=== PATIENT | female | born 1950 | race Caucasian/White ===

== ENCOUNTER 2021-01-12 17:37 | Inpatient (IN) | payer MEDICARE, OTHER ==
[~2021-01-12] VITALS: Ht 175.3 cm; Wt 112.9 kg
--- NOTE | 2021-01-12 17:48 | ED Respiratory ---
General Chief Complaint: Respiratory Problems Stated Complaint: SOB Source: patient Exam Limitations: no limitations History of Present Illness Date Seen by Provider: Jan 12, 2021 Time Seen by Provider: 17:40 Initial Comments 70-year-old female with past medical history of hypertension, hyperlipidemia, and recent Covid coming in due to worsening shortness of breath. The patient was Covid positive on December 23. At that time her symptoms were body aches, chills, fever, cough, and mild shortness of breath. Most of that including her fatigue is significantly better. She has been out of quarantine for over 9 days. Or shortness of breath and cough have never improved. Now she is developing a sharp chest pain worse with inspiration that she has never had before. She went to the clinic and with ambulation her oxygen saturation was in the 80s so she was referred here. Denies any previous history of blood clots in her legs or her lungs. Denies any active malignancy. Denies any recent surgeries. Does endorse unilateral leg swelling with pain on the right which she relates first noticed today. Denies any personal history of cardiac disease. She does not smoke. She does not take any hormone therapy. She does have a cough but denies hemoptysis. Allergies and Home Medications Allergies Coded Allergies: No Known Drug Allergies (Unverified , 01/12/21) Patient Home Medication List Home Medication List Reviewed: Yes Review of Systems Review of Systems Constitutional: No fever EENTM: No blurred vision Respiratory: cough; No hemoptysis; short of breath Cardiovascular: chest pain Gastrointestinal: No abdominal pain, No diarrhea, No nausea, No vomiting Genitourinary: No dysuria : No Musculoskeletal: No back pain Skin: No rash Psychiatric/Neurological: Denies Anxiety, Denies Depressed Hematologic/Lymphatic: No Symptoms Reported Immunological/Allergic: no symptoms reported All Other Systems Reviewed Negative Unless Noted: Yes Past Fhlwstz-Mlwvol-Dxqkkt Hx Patient Social History Tobacco Use?: No Past Medical History Surgeries: Yes Gallbladder Respiratory: No Cardiac: Yes High Cholesterol, Hypertension Neurological: No : No Family Medical History No Pertinent Family Hx (No FH of blood clots) Physical Exam Vital Signs - First Documented 01/12/21 17:37 Temp 37.4 Pulse 79 B/P (MAP) 158/85 (109) Pulse Ox 98 O2 Delivery Room Air Capillary Refill : Height: '" Weight: lbs. oz. kg; BMI Method: General Appearance: WD/WN, no apparent distress HEENT: PERRL/EOMI, normal ENT inspection, pharynx normal Neck: non-tender, full range of motion, supple, normal inspection Respiratory: chest non-tender, lungs clear, normal breath sounds, no respiratory distress, no accessory muscle use Cardiovascular: regular rate, rhythm, no murmur, other (Trace lower extremity edema) Gastrointestinal: normal bowel sounds, non tender, soft; No distended, No guarding, No rebound Extremities: normal range of motion, other (Mild tenderness to the right lower extremity, lower extremities appear equal in size to me however) Neurologic/Psychiatric: no motor/sensory deficits, alert, normal mood/affect Skin: normal color, warm/dry Lymphatic: no adenopathy Progress/Results/Core Measures Suspected Sepsis SIRS Temperature: Pulse: Respiratory Rate: Laboratory Tests 01/12/21 17:40: White Blood Count 8.2 Blood Pressure / Mean: Laboratory Tests 01/12/21 17:40: Creatinine 0.99, INR Comment 1.0, Platelet Count 237, Total Bilirubin 0.8 Results/Orders Lab Results Laboratory Tests Test 01/12/21 17:40 Range/Units White Blood Count 8.2 4.3-11.0 10^3/uL Red Blood Count 4.30 3.80-5.11 10^6/uL Hemoglobin 12.3 11.5-16.0 g/dL Hematocrit 38 35-52 % Mean Corpuscular Volume 88 80-99 fL Mean Corpuscular Hemoglobin 29 25-34 pg Mean Corpuscular Hemoglobin Concent 32 32-36 g/dL Red Cell Distribution Width 14.6 H 10.0-14.5 % Platelet Count 237 130-400 10^3/uL Mean Platelet Volume 9.6 9.0-12.2 fL Immature Granulocyte % (Auto) 0 % Neutrophils (%) (Auto) 75 42-75 % Lymphocytes (%) (Auto) 12 12-44 % Monocytes (%) (Auto) 11 0-12 % Eosinophils (%) (Auto) 2 0-10 % Basophils (%) (Auto) 0 0-10 % Neutrophils # (Auto) 6.2 1.8-7.8 X 10^3 Lymphocytes # (Auto) 1.0 1.0-4.0 X 10^3 Monocytes # (Auto) 0.9 0.0-1.0 X 10^3 Eosinophils # (Auto) 0.1 0.0-0.3 10^3/uL Basophils # (Auto) 0.0 0.0-0.1 10^3/uL Immature Granulocyte # (Auto) 0.0 0.0-0.1 10^3/uL Prothrombin Time 13.0 12.2-14.7 SEC INR Comment 1.0 0.8-1.4 Activated Partial Thromboplast Time 30 24-35 SEC Sodium Level 138 135-145 MMOL/L Potassium Level 4.2 3.6-5.0 MMOL/L Chloride Level 102 98-107 MMOL/L Carbon Dioxide Level 27 21-32 MMOL/L Anion Gap 9 5-14 MMOL/L Blood Urea Nitrogen 16 7-18 MG/DL Creatinine 0.99 0.60-1.30 MG/DL Estimat Glomerular Filtration Rate 55 BUN/Creatinine Ratio 16 Glucose Level 120 H 70-105 MG/DL Calcium Level 9.4 8.5-10.1 MG/DL Corrected Calcium 9.3 8.5-10.1 MG/DL Total Bilirubin 0.8 0.1-1.0 MG/DL Aspartate Amino Transf (AST/SGOT) 16 5-34 U/L Alanine Aminotransferase (ALT/SGPT) 18 0-55 U/L Alkaline Phosphatase 84 40-136 U/L Troponin I < 0.30 <0.30 NG/ML Pro-B-Type Natriuretic Peptide 293.1 H <75.0 PG/ML Total Protein 7.2 6.4-8.2 GM/DL Albumin 4.1 3.2-4.5 GM/DL My Orders Orders - VANESSA SCHWARZ MD Ct Angio Chest W (01/12/21 17:48) Cbc With Automated Diff (01/12/21 17:48) Ekg Tracing (01/12/21 17:48) Comprehensive Metabolic Panel (01/12/21 17:48) Protime With Inr (01/12/21 17:48) Partial Thromboplastin Time (01/12/21 17:48) O2 (01/12/21 17:48) Monitor-Rhythm Ecg Trace Only (01/12/21 17:48) Ed Iv/Invasive Line Start (01/12/21 17:48) Troponin I Fs (01/12/21 17:48) Probnp Fs (01/12/21 17:48) Iohexol Injection (Omnipaque 350 Mg/Ml 1 (01/12/21 18:30) Received Contrast (Hold Metformin- Contr (01/12/21 18:30) Sodium Chloride Flush (Catheter Flush Sy (01/12/21 18:30) Ns (Ivpb) (Sodium Chloride 0.9% Ivpb Bag (01/12/21 18:30) Heparin Drip 02103 Unit/500ml (Heparin (01/12/21 19:15) Heparin (Bolus Per Protocol) (Heparin (B (01/12/21 19:15) Medications Given in ED Current Medications Medications Dose Ordered Sig/Margot Route Start Time Stop Time Status Last Admin Dose Admin Heparin Sodium (Porcine) HEPARIN FULL PROTOC... ONCE ONCE IV 01/12/21 19:15 01/12/21 19:16 DC 01/12/21 19:42 10,000 UNIT Heparin Sodium/ Dextrose 500 ml @ 0 mls/hr Q0M ONCE IV 01/12/21 19:15 01/12/21 19:16 DC 01/12/21 19:48 18 MLS/HR Iohexol 115 ml ONCE ONCE IV 01/12/21 18:30 01/12/21 18:32 DC 01/12/21 18:44 115 ML Sodium Chloride 10 ml NEEDED PRN IV 01/12/21 18:30 01/12/21 18:44 10 ML Sodium Chloride 100 ml ONCE ONCE IV 01/12/21 18:30 01/12/21 18:32 DC 01/12/21 18:44 100 ML Vital Signs/I&O 01/12/21 17:37 Temp 37.4 Pulse 79 B/P (MAP) 158/85 (109) Pulse Ox 98 O2 Delivery Room Air Capillary Refill : Progress Note : Progress Note 70-year-old female with above history coming in due to chest pain and shortness of breath. ABCs were intact and vitals were stable on presentation. With ambulation her oxygen saturation was 90%, and after resting it went back up to 98%. Her lungs are clear. EKG appears without any ischemic changes to me. Her Warren score is 11 which puts her at high risk for a pulmonary embolism. Due to being high risk, we will go straight to CT angiogram of her chest to assess for a pulmonary embolism. proBNP just under 300, troponin negative, electrolytes within normal limits. CT on my interpretation concerning for pulmonary emboli. The patient was started on a heparin bolus with drip. Her PESI score is 111 making her high risk (scored higher for tachypnea and transient hypoxia). No signs of right heart strain on CT or EKG. Because of her risk factors however, I believe it is more appropriate for her to be admitted. I discussed the case with Dr. Huber at 19:38 who is agreeable to admit the patient under observation status. At the time of transfer, she was not hypoxic, not tachycardic, and blood pressure was appropriate. ECG Initial ECG Impression Date: Jan 12, 2021 Initial ECG Impression Time: 17:48 Initial ECG Rate: 74 Initial ECG Rhythm: Normal Sinus Comment Normal sinus rhythm, narrow QRS, normal axis, no significant ST changes or T wave abnormalities Departure Impression Primary Impression: Pulmonary emboli Qualified Codes: I26.99 - Other pulmonary embolism without acute cor pulmonale Additional Impression: Dyspnea Qualified Codes: R06.00 - Dyspnea, unspecified Disposition: 30 STILL A PATIENT Condition: Stable Admissions Decision to Admit Reason: Admit from ER (General) Decision to Admit/Date: Jan 12, 2021 Time/Decision to Admit Time: 19:46 Departure-Patient Inst. Referrals: GURJIT MCDONALD MD (PCP/Family) Primary Care Physician VANESSA SCHWARZ MD Jan 12, 2021 17:48
[2021-01-12 18:02] LABS: BASOPHILS % (AUTO) 0 % (0-10); EOSINOPHILS # (AUTO) 0.1 10^3/uL (0.0-0.3); EOSINOPHILS % (AUTO) 2 % (0-10); HEMATOCRIT 38 % (35-52); HEMOGLOBIN 12.3 g/dL (11.5-16.0); LYMPHOCYTES % (AUTO) 12 % (12-44); MEAN CORPUSCULAR HEMOGLOBIN 29 pg (25-34); MEAN CORPUSCULAR HGB CONC 32 g/dL (32-36); MEAN CORPUSCULAR VOLUME 88 fL (80-99); MEAN PLATELET VOLUME 9.6 fL (9.0-12.2); MONOCYTES # (AUTO) 0.9 X 10^3 (0.0-1.0); MONOCYTES % (AUTO) 11 % (0-12); NEUTROPHILS # (AUTO) 6.2 X 10^3 (1.8-7.8); NEUTROPHILS % (AUTO) 75 % (42-75); PLATELET COUNT 237 10^3/uL (130-400); WHITE BLOOD COUNT 8.2 10^3/uL (4.3-11.0)
[2021-01-12 18:17] LABS: BILIRUBIN,TOTAL 0.8 MG/DL (0.1-1.0); CALCIUM 9.4 MG/DL (8.5-10.1); CREATININE SERUM 0.99 MG/DL (0.60-1.30); POTASSIUM 4.2 MMOL/L (3.6-5.0)
[2021-01-12 18:18] LABS: ALBUMIN 4.1 GM/DL (3.2-4.5); TOTAL PROTEIN 7.2 GM/DL (6.4-8.2)
[2021-01-12] MEDS ORDERED: IOHEXOL 350 MG/ML 150 ML (OMNIPAQUE 350) VIAL IV ONE (18:30)
[2021-01-12] MEDS ORDERED: NS 100 ML (IVPB) BAG IV ONE (18:30)
[2021-01-12] MEDS ORDERED: HOLD METFORMIN - RECEIVED CONTRAST 20 ML VIAL IV SCH (18:30)
[2021-01-12] MEDS ORDERED: CATHETER FLUSH 10 ML SYR IV PRN (18:30)
--- NOTE | 2021-01-12 19:06 | Diagnostic Imaging Report ---
PROCEDURE: CT angiography of the chest with contrast. TECHNIQUE: Multiple contiguous axial images were obtained through the chest after uneventful bolus administration of intravenous contrast. 3D reconstructed CTA MIP acquisitions were also performed. Auto Exposure Controls were utilized during the CT exam to meet ALARA standards for radiation dose reduction. INDICATION: Shortness of breath, pulmonary embolism. COMPARISON: None available. FINDINGS: Calcified right hilar lymph nodes are present. No pathologically enlarged lymph nodes within the chest. Scattered vascular calcifications without aneurysmal dilatation of the thoracic aorta. The heart is within normal limits in size. No significant pericardial effusion. Trace right pleural effusion. No significant left pleural effusion. No pneumothorax. Mild patchy reticular and groundglass opacities are present within the lungs, bilaterally, greatest within the right lung. More dense opacities are seen within the right lobe. The trachea is patent. Multiple filling defects are identified within segmental and subsegmental branches of the left upper lobe, left lower lobe, right lower lobe and right middle lobe. Additional filling defects noted within the right upper lobe pulmonary arteries. Interventricular septum is unremarkable. The visualized upper abdomen is unremarkable. No acute osseous abnormality. Scattered osseous degenerative changes. IMPRESSION: Extensive bilateral segmental and subsegmental pulmonary emboli without evidence of heart strain at this time. Significant bilateral pulmonary opacities. These are nonspecific. Findings could relate to an underlying infectious etiology. Developing pulmonary infarction is not excluded. Neoplasm is also not excluded. Recommend a follow-up CT of the chest in 3 months to reevaluate. Additional findings as described above, to include tiny right pleural effusion. Findings discussed with Dr. Tyler Sanchez at 1900 on 01/12/2021. Dictated by: Dictated on workstation # [id number]
[2021-01-12] MEDS ORDERED: HEParin 1000 UNIT/ML (10ML VIAL) FOR BOLUS IV ONE (19:15)
[2021-01-12] MEDS ORDERED: HEParin DRIP 25000 UNIT/500ML 500 ML IV ONE (19:15)
[2021-01-12 21:30] VITALS: BP 210/100
--- NOTE | 2021-01-12 22:23 | History & Physical ---
HPI History of Present Illness: Had onset of symptoms December 23 and positive COVID test on December 26. She isolated at home until Jan 02 and did okay, chest pain started on 01/05 and was initially 8/10, but has worsened to 9/10. She has also been short of breath and lightheaded periodically during the last week. She saw her primary doctor today due to right leg pain in her outer right calf and he said it may be a clot and sent her to the ER. In the ER at [place] she was found to have multiple PEs, but actually stable at rest on room air with desaturation only with activity and with normal heart rate. On arrival to [place], her heart rate was in the 160s with marked hypertension and EKG showed atrial fibrillation. She does feel palpitations but states they feel a little less now. She has no known cardiac history, states she saw a [employer] once after she had a coronary artery calcium score that was concerning and they stated she was generally okay and recommended healthy diet and exercise and weight loss. Source: patient Date seen by provider: Jan 12, 2021 Time Seen by Provider: 22:30 Attending Physician Shira Huber MD PCP Ángel Munguia MD Consult Date of Admission Jan 12, 2021 at 19:42 Home Medications Home Medications Reviewed patient Home Medication Reconciliation performed by pharmacy medication reconciliations respiratory therapy technician and/or nursing. Patients Allergies have been reviewed. Allergies Coded Allergies: No Known Drug Allergies (Unverified , 01/12/21) NKL-Edilfr-Ftqtxl Hx Patient Social History Smoking Status: Never a Smoker Alcohol Use?: No Have you traveled recently?: No Past Medical History PMHx: HTN HLD Nephrolithiasis SurgHx Hysterectomy cholecystectomy Back surgery Family Medical History Significant Family History: Cancer (maternal grandmother, mother, aunt and son colon cancer), Lung Disease Review of Systems ([facility]) Constitutional: No fever EENTM: No nose congestion, No throat pain Respiratory: dyspnea on exertion Cardiovascular: chest pain Gastrointestinal: No constipation, No diarrhea, No nausea, No vomiting Musculoskeletal: other (right leg pain) Reviewed Test Results Reviewed Test Results Lab Laboratory Tests Test 01/12/21 17:40 Range/Units White Blood Count 8.2 4.3-11.0 10^3/uL Red Blood Count 4.30 3.80-5.11 10^6/uL Hemoglobin 12.3 11.5-16.0 g/dL Hematocrit 38 35-52 % Mean Corpuscular Volume 88 80-99 fL Mean Corpuscular Hemoglobin 29 25-34 pg Mean Corpuscular Hemoglobin Concent 32 32-36 g/dL Red Cell Distribution Width 14.6 H 10.0-14.5 % Platelet Count 237 130-400 10^3/uL Mean Platelet Volume 9.6 9.0-12.2 fL Immature Granulocyte % (Auto) 0 % Neutrophils (%) (Auto) 75 42-75 % Lymphocytes (%) (Auto) 12 12-44 % Monocytes (%) (Auto) 11 0-12 % Eosinophils (%) (Auto) 2 0-10 % Basophils (%) (Auto) 0 0-10 % Neutrophils # (Auto) 6.2 1.8-7.8 X 10^3 Lymphocytes # (Auto) 1.0 1.0-4.0 X 10^3 Monocytes # (Auto) 0.9 0.0-1.0 X 10^3 Eosinophils # (Auto) 0.1 0.0-0.3 10^3/uL Basophils # (Auto) 0.0 0.0-0.1 10^3/uL Immature Granulocyte # (Auto) 0.0 0.0-0.1 10^3/uL Prothrombin Time 13.0 12.2-14.7 SEC INR Comment 1.0 0.8-1.4 Activated Partial Thromboplast Time 30 24-35 SEC Sodium Level 138 135-145 MMOL/L Potassium Level 4.2 3.6-5.0 MMOL/L Chloride Level 102 98-107 MMOL/L Carbon Dioxide Level 27 21-32 MMOL/L Anion Gap 9 5-14 MMOL/L Blood Urea Nitrogen 16 7-18 MG/DL Creatinine 0.99 0.60-1.30 MG/DL Estimat Glomerular Filtration Rate 55 BUN/Creatinine Ratio 16 Glucose Level 120 H 70-105 MG/DL Calcium Level 9.4 8.5-10.1 MG/DL Corrected Calcium 9.3 8.5-10.1 MG/DL Total Bilirubin 0.8 0.1-1.0 MG/DL Aspartate Amino Transf (AST/SGOT) 16 5-34 U/L Alanine Aminotransferase (ALT/SGPT) 18 0-55 U/L Alkaline Phosphatase 84 40-136 U/L Troponin I < 0.30 <0.30 NG/ML Pro-B-Type Natriuretic Peptide 293.1 H <75.0 PG/ML Total Protein 7.2 6.4-8.2 GM/DL Albumin 4.1 3.2-4.5 GM/DL Radiology CTA chest 01/12: IMPRESSION: Extensive bilateral segmental and subsegmental pulmonary emboli without evidence of heart strain at this time. Significant bilateral pulmonary opacities. These are nonspecific. Findings could relate to an underlying infectious etiology. Developing pulmonary infarction is not excluded. Neoplasm is also not excluded. Recommend a follow-up CT of the chest in 3 months to reevaluate. Physical Exam-([facility]) Physical Exam Vital Signs VS - Last 72 Hours, by Label 01/12/21 17:37 Temp 37.4 Pulse 79 B/P (MAP) 158/85 (109) Pulse Ox 98 O2 Delivery Room Air Capillary Refill : General Appearance: WD/WN, no apparent distress Respiratory: lungs clear, normal breath sounds, no respiratory distress Cardiovascular: tachycardia, irregularly irregular Peripheral Pulses: 2+ Dorsalis Pedis (R), 2+ Left Dors-Pedis (L) Gastrointestinal: normal bowel sounds, non tender, soft Neurologic/Psychiatric: alert, normal mood/affect Skin: normal color, warm/dry Assessment/Plan Assessment/Plan Admission Status: Inpatient Order (span 2 midnights) Reason for Inpatient Admission: A fib with RVR, requiring ICU admission (1) Pulmonary emboli Status: Acute Assessment & Plan: Suspect secondary to recent COVID infection. Enoxaparin treatment dose, supplemental oxygen as needed. Qualifiers: Qualified Codes: I26.99 - Other pulmonary embolism without acute cor pulmonale (2) Atrial fibrillation Status: Acute Assessment & Plan: Suspect due to multiple PE. Initial troponin in ER negative, repeat pending. BNP minimally elevated. Check TSH. Transfer to ICU and start cardizem drip will consult eICU for overnight, echo in the am and Cardiology consult in am. (3) Hypertension Status: Chronic Assessment & Plan: Resume home lisinopril, starting cardizem drip for a fib and HTN. Qualifiers: Qualified Codes: I10 - Essential (primary) hypertension (4) Hyperlipidemia Status: Chronic Assessment & Plan: Resume home statin (5) DVT prophylaxis Status: Acute Assessment & Plan: On therapeutic enoxaparin SHIRA HUBER MD Jan 12, 2021 22:23
[2021-01-12] MEDS ORDERED: LISI20TA26 PO (22:24)
[2021-01-12] MEDS ORDERED: ATOR10TA66 PO (22:24)
[2021-01-12] MEDS ORDERED: ALLO100T PO (22:24)
[2021-01-12] MEDS ORDERED: ENOXAPARIN 100 MG/1 ML (LOVENOX) SYR SC ONE (23:00)
[2021-01-12] MEDS: dilTIAZem DRIP PRE-MIX 125 ML IV SCH (23:09)
--- OUTSIDE RECORDS SUMMARY | 2021-01-12 23:29 | XMS REPORT | Clinical Summary ---
Author Author [facility] Organization 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 8 Active lisinopril Take 20 mg by 0 (PRINIVIL,ZESTRIL) 20 MG mouth daily. 8 tablet Active citalopram (CELEXA) 40 MG Take 40 mg by 0 tablet mouth daily. 8 Active allopurinol (ZYLOPRIM) Take 100 mg 0 100 MG tablet by mouth daily. Active aspirin 81 MG EC Take 1 tablet 30 tablet 0 01 tabletIndications: (81 mg total) 8 Coronary artery disease by mouth involving sycuan coronary daily. 3 artery of sycuan heart times a week without angina pectoris, Dyslipidemia, Essential hypertension, Class 2 obesity without serious comorbidity with body mass index (BMI) of 36.0 to 36.9 in adult, unspecified obesity type Active Problems Problem Noted Date Chronic back pain Leg pain Family History Medical History Relation Name Comments Lung disease Father Stroke Mother Relation Name Status Comments Father Mother Alive Social History Date Tobacco Use Types Packs/Day Years Used Never Smoker Smokeless Tobacco: Never Used Comments Alcohol Use Standard Drinks/Week very seldom Yes 0 (1 standard drink = 0.6 o z pure alcohol) Sex Assigned at Date Recorded Not on file Last Filed Vital Signs Reading Time Taken Comments Vital Sign 167/85 05/14/2018 10:50 AM SPECIAL EDUCATION PROFESSOR Blood Pressure 60 05/14/2018 10:50 AM SPECIAL EDUCATION PROFESSOR Pulse - - Temperature - - Respiratory Rate - - Oxygen Saturation - - Inhaled Oxygen Concentration 112.5 kg (248 lb) 05/14/2018 10:50 AM SPECIAL EDUCATION PROFESSOR Weight 175.3 cm (5' 9") 05/14/2018 10:50 AM SPECIAL EDUCATION PROFESSOR Height 36.62 05/14/2018 10:50 AM SPECIAL EDUCATION PROFESSOR Body Mass Index Plan of Treatment Health Maintenance Due Date Last Done Comments Advance Directive has 1950 been filed Hepatitis C Screen 1950 Medicare Annual Wellness 1950 Td/Tdap# 1950 COVID-19 Vaccine (1) 1961 Colorectal Screening via 09/02/1999 Colonoscopy Mammogram Screening 09/02/1999 Zoster Vaccine# (1 of 2) 09/02/1999 Advance Directive 2014 Conversation Depression Screening 2014 PHQ-9 # Fall Risk Assessment # 2014 Osteoporosis Screening 2014 Patient Needs Advance 2014 Directive Pneumococcal Vaccine: 65+ 2014 Years (1 of 1 - PPSV23) Influenza Vaccine (#1) 2021 Results Not on filefrom Last 3 Months Insurance Type Payer Benefit Subscriber ID Effective Phone Address Plan / Dates Group Medicare MEDICARE MEDICARE [id number] 2014-P [place] COMMERCIAL-NONCONTRACTED COLONIAL [id number] [employer] resent MEDICARE SUPPLEMENT Advance Directives For more information, please contact: [phone] 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
--- OUTSIDE RECORDS SUMMARY | 2021-01-12 23:29 | XMS REPORT | Clinical Summary ---
Author Author [facility] Organization [facility] Address Unknown Phone Unavailable Care Team Providers Care Professor Of Graphic Design Name Role Phone Ángel Munguia MD PCP Source Comments Some departments are not documenting in the electronic medical record. If you d o not see the information that you expected, contact Release of Information in [facility] Health Information Management department at [phone] for further assistan ce in locating additional records.[facility] Allergies No Known Active Allergies Medications End Date Status Medication Sig Dispensed Refills Start Date Active allopurinol (ZYLOPRIM) Take 100 mg 0 05/25/2 01 100 mg tablet by mouth 8 daily. Active atorvastatin (LIPITOR) 10 Take 10 mg by 3 05/27 9/201 mg tablet mouth daily. 9 Active citalopram (CELEXA) 40 mg Take 40 mg by 0 / 4/201 tablet mouth daily. 9 Active cyclobenzaprine Take 10 mg by 0 (FLEXERIL) 10 mg tablet mouth as 9 Needed. Active lisinopril (PRINIVIL; Take 20 mg by 0 06/19/19 1 ZESTRIL) 20 mg tablet mouth daily. 9 Active Problems Not on file Surgical History Surgery Date Site/Laterality Comments HX HYSTERECTOMY BACK SURGERY CHOLECYSTECTOMY Medical History Medical History Date Comments Essential hypertension Kidney stones Hyperlipidemia Family History Medical History Relation Name Comments Emphysema Father Cancer Mother colon Hypertension Mother Stroke Mother Relation Name Status Comments Father Mother Alive Social History Date Tobacco Use Types Packs/Day Years Used Never Smoker Smokeless Tobacco: Never Used Comments Alcohol Use Standard Drinks/Week No 0 (1 standard drink = 0.6 o z pure alcohol) Alcohol Habits Answer Date Recorded How often do you have a drink containing alcohol? Never 07/24/2018 How many drinks containing alcohol do you have on No t asked a typical day when you are drinking? How often do you have six or more drinks on one Not asked occasion? Sex Assigned at Date Recorded Not on file Last Filed Vital Signs Reading Time Taken Comments Vital Sign 157/80 07/24/2018 11:05 AM VEGETABLE THINNER Blood Pressure 62 07/24/2018 11:05 AM VEGETABLE THINNER Pulse - - Temperature - - Respiratory Rate 97% 07/24/2018 11:05 AM VEGETABLE THINNER Oxygen Saturation - - Inhaled Oxygen Concentration 110.2 kg (243 lb) 07/24/2018 11:05 AM VEGETABLE THINNER Weight 171.7 cm (5' 7.6") 07/24/2018 11:05 AM VEGETABLE THINNER Height 37.39 07/24/2018 11:05 AM VEGETABLE THINNER Body Mass Index Plan of Treatment Health Maintenance Due Date Last Done Comments MEDICARE ANNUAL WELLNESS 1950 VISIT DTAP/TDAP VACCINES (1 - 09/02/1967 Tdap) HEPATITIS C SCREENING 09/02/1967 PHYSICAL (COMPREHENSIVE) 09/02/1967 EXAM BREAST CANCER SCREENING 1989 COLORECTAL CANCER 09/02/1999 SCREENING SHINGLES RECOMBINANT 09/02/1999 VACCINE (1 of 2) OSTEOPOROSIS 2014 SCREENING/MONITORING PNEUMONIA (PPSV23) 2014 VACCINE (1 of 1 - PPSV23) INFLUENZA VACCINE 02/24/2021 Results Not on filefrom Last 3 Months Insurance Type Payer Benefit Subscriber ID Effective Phone Address Plan / Dates Group Medicare MEDICARE MEDICARE [id number] 2014-P PART A AND resent B PPO [employer] B[employer]ERS [id number] 19-P LIFE & resent CASUALTY [phone] Advance Directives 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
[2021-01-12 23:30] VITALS: BP 158/85
[2021-01-13] MEDS ORDERED: RT-ALBUTEROL/IPRATROPIUM 3 ML (DUONEB) VIAL INH PRN
--- NOTE | 2021-01-13 00:06 | Tele-ICU Consult ---
History of Present Illness History of Present Illness Date Seen by Provider: Jan 12, 2021 Time Seen by Provider: 11:45 Date of Admission This virtual visit was conducted using real time audio/video. Thank you for asking us to see this patient for respiratory insufficiency and distress due to B PEs and initial afib which has converted to NSR. Recently diagnosed w Covid 12/23/2020. HPC: Recent events: Chest pain, desaturation w exertion. PMH: HTN HL Gout Covid. SH: smoking history:N FH: Non-contributory. ROS: limited by patient's clinical condition, currently asymptomatic. PE: VSS HR 82 SR BP 172/86 O2 sat 91% on RA. HEENT: No obvious masses, adenopathy or JVD. Chest: clear to auscultation. CV: RRR S1 S2 No murmur or added sounds. Abd: Non-tender. Bowel sounds Y. : Unremarkable. Chaudhry N. WEB CONTENT PRODUCER/psychiatric: Alert and oriented, grossly intact. No obvious focal findings. Extremities: No edema. Capillary refill < 3 seconds. Skin: unremarkable. Results: Elevated BG 120, proBNP. CTC w B PEs. A/P: Respiratory insufficiency/distress, B PEs, recently converted afib: Cont Duonebs, Lovenox, Cardizem infusion. Available chart/ vitals / labs / Images reviewed. Video assessment done using teleICU camera, rest of exam as per RN. Monitor for increasing oxygenation needs and/or need for NIV/intubation.. Critical Care: critically ill patient. Discussed with BELLE Verduzco . Asked RN to reach out to eICU if any questions or concerns later. Time spent with patient/coordination of care with other health professionals (mins): 20 ? Allergies and Home Medications Allergies Coded Allergies: No Known Drug Allergies (Unverified , 01/12/21) Home Medications Allopurinol 100 Mg Tablet, 1 TAB PO DAILY, (Reported) Atorvastatin Calcium 10 Mg Tablet, 10 MG PO DAILY, (Reported) Lisinopril 20 Mg Tablet, 20 MG PO DAILY, (Reported) Past Medical/Social/Family Hx Patient Social History Tobacco Use?: No Smoking Status: Never a Smoker Use of E-Cig and/or Vaping dev: No Substance use?: No Alcohol Use?: No Pt stated abuse/neglect: No Current Status Advance Directives: No Communicates: Verbally Primary Language: Filipino Preferred Spoken Language: Filipino Is interpretation needed?: No Past Medical History PMHx: HTN HLD Nephrolithiasis SurgHx Hysterectomy cholecystectomy Back surgery Review of Systems Constitutional: no symptoms reported Sepsis Event Evaluation Sepsis Stage: Ruled Out Height, Weight, BMI Height: '" Weight: lbs. oz. kg; 35.79 BMI Method: Exam Exam Patient acknowledged, consented, and participated in this virtual visit which wa s conducted using real time audio/video Vital Signs Date Time Temp Pulse Resp B/P (MAP) Pulse Ox O2 Delivery O2 Flow Rate FiO2 01/12/21 23:30 37.4 79 98 21 01/12/21 22:31 36.6 89 20 176/89 96 Room Air 01/12/21 21:30 155 22 210/100 (136) 90 Room Air 01/12/21 17:37 37.4 79 158/85 (109) 98 Room Air Height & Weight Height: '" Weight: lbs. oz. kg; 35.79 BMI Method: General Appearance: No Apparent Distress Peripheral Pulses: 2+ Dorsalis Pedis (R), 2+ Left Dors-Pedis (L) Gastrointestinal: normal bowel sounds, non tender, soft Results Lab Laboratory Tests 01/12/21 17:40 Assessment/Plan Assessment/Plan See free text. Critical Care: Critically Ill Patient Time spent on discussion(mins): 0 YI COX MD Jan 13, 2021 00:06
[2021-01-13 03:26] LABS: BASOPHILS % (AUTO) 0 % (0-10); EOSINOPHILS # (AUTO) 0.1 10^3/uL (0.0-0.3); EOSINOPHILS % (AUTO) 2 % (0-10); HEMATOCRIT 36 % (35-52); HEMOGLOBIN 11.7 g/dL (11.5-16.0); LYMPHOCYTES # (AUTO) 1.1 10^3/uL (1.0-4.0); LYMPHOCYTES % (AUTO) 14 % (12-44); MEAN CORPUSCULAR HEMOGLOBIN 29 pg (25-34); MEAN CORPUSCULAR HGB CONC 32 g/dL (32-36); MEAN CORPUSCULAR VOLUME 90 fL (80-99); MEAN PLATELET VOLUME 10.1 fL (9.0-12.2); MONOCYTES % (AUTO) 13 % (0-12); NEUTROPHILS # (AUTO) 5.4 10^3/uL (1.8-7.8); NEUTROPHILS % (AUTO) 71 % (42-75); PLATELET COUNT 206 10^3/uL (130-400); WHITE BLOOD COUNT 7.7 10^3/uL (4.3-11.0)
[2021-01-13 03:53] LABS: CALCIUM 9.4 MG/DL (8.5-10.1)
[2021-01-13 03:57] LABS: PHOSPHORUS 3.5 MG/DL (2.3-4.7)
[2021-01-13 03:58] LABS: CREATININE SERUM 0.95 MG/DL (0.60-1.30)
[2021-01-13 04:00] LABS: MAGNESIUM 1.9 MG/DL (1.6-2.4)
[2021-01-13] MEDS: POTASSIUM CL 10MEQ/50ML IVPB 50 ML IV SCH (04:01)
[2021-01-13] MEDS: MAGNESIUM 1 GM/100 ML IVPB 100 ML IV SCH (04:01)
[2021-01-13] MEDS: KCL 20 MEQ TAB (K-DUR) PO SCH (04:01)
[2021-01-13] MEDS ORDERED: HYDROmorphone 2 MG/ML VIAL (DILAUDID) IVP PRN (06:00)
[2021-01-13] MEDS ORDERED: lisINopril 20 MG (PRINIVIL) TABLET PO SCH (09:00)
[2021-01-13] MEDS ORDERED: ALLOPURINOL 100 MG (ZYLOPRIM) TAB PO SCH (09:00)
[2021-01-13] MEDS ORDERED: AtorvaSTATin TABLET 10 MG TABLET PO SCH (09:00)
--- NOTE | 2021-01-13 09:11 | Consultation-Cardiology ---
HPI-Cardiology Cardiology Consultation: Date of Consultation 01/13/21 Time Seen by a Provider: 08:30 Date of Admission Attending Physician Yisel Huber MD Admitting Physician Ángel Munguia MD Consulting Physician DEREK CHINCHILLA MD, MA, FACP, FACC, [facility] [place] [facility] Physician requesting consult: Dr. Huber HPI: Chief Complaint: Reason for consultation: A Fib with RVR HPI 70 yo woman who contracted COVID-19 in late November 2018. Finished quarantine on Jan 02. Has been having increasing cough and shortness of breath. No cp. Came to the hosp. Was diagnosed with PE. Admitted. Developed A F w/ RVR associated with a feeling of palpitations. Transferred to ICU. Currently in sinus and palp resolved. Reports having intermittently had such palpitations for a number of years. Denies syncope or swelling Review of Systems-Cardiology Review of Systems Constitutional: malaise, tiredness Eyes: No vision change Ears/Nose/Throat: No ear discharge, No nasal drainage, No recent hearing loss Respiratory: As described under HPI Cardiovascular: As described under HPI Gastrointestinal: No diarrhea, No nausea, No vomiting : No Musculoskeletal: No back pain, No joint pain Skin: No rash, No ulcerations Psychiatric/Neurological: No seizure, No focal weakness, No syncope Hematologic: bleeding abnormalities All Other Systems Reviewed Negative Unless Noted: Yes MMJ-[id number] Hx Patient Social History Smoking Status: Never a Smoker Have you traveled recently?: No Alcohol Use?: No Pt feels they are or have been: No Past Medical History PMH As described under Assessment. Allergies and Home Medications Allergies Coded Allergies: No Known Drug Allergies (Unverified , 01/12/21) Home Medications Allopurinol 100 Mg Tablet, 1 TAB PO DAILY, (Reported) Last Action: Continued Atorvastatin Calcium 10 Mg Tablet, 10 MG PO DAILY, (Reported) Last Action: Continued Lisinopril 20 Mg Tablet, 20 MG PO DAILY, (Reported) Last Action: Continued Patient Home Medication List Home Medication List Reviewed: Yes Physical Exam-Cardiology Physical Exam Vital Signs/I&O 01/12/21 01/12/21 01/12/21 01/12/21 21:30 22:31 22:55 22:55 Temp 36.6 37.0 Pulse 155 89 141 Resp 22 20 20 B/P (MAP) 210/100 (136) 176/89 144/87 (106) Pulse Ox 90 96 91 92 O2 Delivery Room Air Room Air Room Air Room Air 01/12/21 01/12/21 01/12/21 01/12/21 22:57 23:00 23:15 23:30 Temp 37.4 Pulse 140 160 156 79 Resp 37 34 B/P (MAP) 146/111 (123) 143/104 (117) Pulse Ox 93 91 98 O2 Delivery Room Air Room Air FiO2 21 01/12/21 01/12/21 01/13/21 01/13/21 23:30 23:45 00:00 00:30 Pulse 147 85 93 75 Resp 31 27 31 24 B/P (MAP) 156/94 (114) 172/86 (114) 180/83 (115) 136/72 (93) Pulse Ox 91 90 91 90 O2 Delivery Room Air Room Air Room Air Room Air 01/13/21 01/13/21 01/13/21 01/13/21 01:00 01:00 02:00 03:00 Pulse 78 78 66 68 Resp 28 24 30 B/P (MAP) 122/74 (90) 151/74 (99) 142/69 (93) Pulse Ox 96 96 95 O2 Delivery Room Air Room Air Room Air 01/13/21 01/13/21 01/13/21 01/13/21 04:00 04:00 04:05 05:00 Temp 37.1 Pulse 62 61 Resp 25 25 B/P (MAP) 133/74 (93) 129/68 (88) Pulse Ox 93 96 96 O2 Delivery Nasal Cannula Room Air Room Air O2 Flow Rate 2.00 01/13/21 01/13/21 01/13/21 01/13/21 06:00 07:00 07:00 07:29 Temp 36.4 Pulse 68 66 64 Resp 22 33 B/P (MAP) 151/105 (120) 136/76 (86) Pulse Ox 94 95 O2 Delivery Room Air Room Air 01/13/21 01/13/21 01/13/21 08:00 08:00 08:35 Pulse 68 Resp 37 B/P (MAP) 144/70 (94) Pulse Ox 96 O2 Delivery Nasal Cannula Nasal Cannula O2 Flow Rate 1.00 1.00 Capillary Refill : Less Than 3 Seconds Constitutional: AAO x 3, well-developed, well-nourished HEENT: EOMI, hearing is well preserved Neck: carotid pulses are 2 + bilaterally, with good upstrokes Respiratory: No accessory muscle use; other (good, bilateral air entry) Cardiovascular: regular rate-rhythm, S1 and S2, systolic murmur (soft ROBERTO at card base) Gastrointestinal: No tender; soft; No guarding, No rebound; audible bowel sounds Extremities: No clubbing, No cyanosis, No significant edema Neurologic/Psychiatric: oriented x 3, other (moves all limbs equally) Skin: No rash on exposed areas, No ulcerations on exposed areas Lymphatic: no adenopathy Data Review Labs Laboratory Tests 01/12/21 17:40: White Blood Count 8.2, Red Blood Count 4.30, Hemoglobin 12.3, Hematocrit 38, Mean Corpuscular Volume 88, Mean Corpuscular Hemoglobin 29, Mean Corpuscular Hemoglobin Concent 32, Red Cell Distribution Width 14.6H, Platelet Count 237, Mean Platelet Volume 9.6, Immature Granulocyte % (Auto) 0, Neutrophils (%) (Auto) 75, Lymphocytes (%) (Auto) 12, Monocytes (%) (Auto) 11, Eosinophils (%) (Auto) 2, Basophils (%) (Auto) 0, Neutrophils # (Auto) 6.2, Lymphocytes # (Auto) 1.0, Monocytes # (Auto) 0.9, Eosinophils # (Auto) 0.1, Basophils # (Auto) 0.0, Immature Granulocyte # (Auto) 0.0, Prothrombin Time 13.0, INR Comment 1.0, Activated Partial Thromboplast Time 30, Sodium Level 138, Potassium Level 4.2, Chloride Level 102, Carbon Dioxide Level 27, Anion Gap 9, Blood Urea Nitrogen 16, Creatinine 0.99, Estimat Glomerular Filtration Rate 55, BUN/Creatinine Ratio 16, Glucose Level 120H, Calcium Level 9.4, Corrected Calcium 9.3, Total Bilirubin 0.8, Aspartate Amino Transf (AST/SGOT) 16, Alanine Aminotransferase (ALT/SGPT) 18, Alkaline Phosphatase 84, Troponin I < 0.30, Pro-B-Type Natri uretic Peptide 293.1H, Total Protein 7.2, Albumin 4.1 01/12/21 22:44: Troponin I < 0.028, Thyroid Stimulating Hormone (TSH) 1.71 01/13/21 02:45: White Blood Count 7.7, Red Blood Count 4.05, Hemoglobin 11.7, Hematocrit 36, Mean Corpuscular Volume 90, Mean Corpuscular Hemoglobin 29, Mean Corpuscular Hemoglobin Concent 32, Red Cell Distribution Width 14.5, Platelet Count 206, Mean Platelet Volume 10.1, Immature Granulocyte % (Auto) 0, Neutrophils (%) (Auto) 71, Lymphocytes (%) (Auto) 14, Monocytes (%) (Auto) 13H, Eosinophils (%) (Auto) 2, Basophils (%) (Auto) 0, Neutrophils # (Auto) 5.4, Lymphocytes # (Auto) 1.1, Monocytes # (Auto) 1.0, Eosinophils # (Auto) 0.1, Basophils # (Auto) 0.0, Immature Granulocyte # (Auto) 0.0, Sodium Level 137, Potassium Level 4.0, Chloride Level 105, Carbon Dioxide Level 20L, Anion Gap 12, Blood Urea Nitrogen 13, Creatinine 0.95, Estimat Glomerular Filtration Rate 58, BUN/Creatinine Ratio 14, Glucose Level 104, Calcium Level 9.4, Phosphorus Level 3.5, Magnesium Level 1.9 Laboratory Tests 01/12/21 17:40 01/13/21 02:45 A/P-Cardiology Assessment/Admission Diagnosis Post-COVID pulmonary emboli PAF with RVR Hypertension Hyperlipidemia TRINITY by history, but she is non-compliant with treatment Discussion and Recomendations * Long-acting dilt for vent rate control * Anticoag for stroke prophylaxis. Currently on enoxaparin for treatment of PE. Switch to oral apixaban when ok with Pulm and Med services * Echo * Monitor labs * Advised compliance with CPAP for sleep apnea DEREK CHINCHILLA MD FACP [facility] CCDS Jan 13, 2021 09:11
[2021-01-13] MEDS: ENOXAPARIN 300 MG/3 ML (LOVENOX) MULTI-DOSE VIAL SQ SCH ×2 (09:18→20:48)
[2021-01-13] MEDS ORDERED: IBUPROFEN 600 MG (MOTRIN) TAB PO PRN (09:30)
[2021-01-13] MEDS ORDERED: ACET-2267 PO (10:22)
--- NOTE | 2021-01-13 14:04 | Progress Note ---
Subjective Subjective/Events-last exam Pt states she is feeling pretty well, has some chest pain around right lower rib area. Objective Exam Last Set of Vital Signs Vital Signs Date Time Temp Pulse Resp B/P (MAP) Pulse Ox O2 Delivery O2 Flow Rate FiO2 01/13/21 13:00 64 46 110/91 (102) 92 Nasal Cannula 1.00 01/13/21 12:00 37.5 01/12/21 23:30 21 Capillary Refill : Less Than 3 Seconds I&O Intake and Output 01/13/21 00:00 Daily Weight Change No General: Alert, No Acute Distress Lungs: Clear to Auscultation, Normal Air Movement Heart: Regular Rate, No Murmurs Neuro: Normal Speech Psych/Mental Status: Mood NL Results/Procedures Lab Laboratory Tests 01/12/21 17:40: White Blood Count 8.2, Red Blood Count 4.30, Hemoglobin 12.3, Hematocrit 38, Mean Corpuscular Volume 88, Mean Corpuscular Hemoglobin 29, Mean Corpuscular Hemoglobin Concent 32, Red Cell Distribution Width 14.6H, Platelet Count 237, Mean Platelet Volume 9.6, Immature Granulocyte % (Auto) 0, Neutrophils (%) (Auto) 75, Lymphocytes (%) (Auto) 12, Monocytes (%) (Auto) 11, Eosinophils (%) (Auto) 2, Basophils (%) (Auto) 0, Neutrophils # (Auto) 6.2, Lymphocytes # (Auto) 1.0, Monocytes # (Auto) 0.9, Eosinophils # (Auto) 0.1, Basophils # (Auto) 0.0, Immature Granulocyte # (Auto) 0.0, Prothrombin Time 13.0, INR Comment 1.0, Activated Partial Thromboplast Time 30, Sodium Level 138, Potassium Level 4.2, Chloride Level 102, Carbon Dioxide Level 27, Anion Gap 9, Blood Urea Nitrogen 16, Creatinine 0.99, Estimat Glomerular Filtration Rate 55, BUN/Creatinine Ratio 16, Glucose Level 120H, Calcium Level 9.4, Corrected Calcium 9.3, Total Bilirubin 0.8, Aspartate Amino Transf (AST/SGOT) 16, Alanine Aminotransferase (ALT/SGPT) 18, Alkaline Phosphatase 84, Troponin I < 0.30, Pro-B-Type Natriuretic Peptide 293.1H, Total Protein 7.2, Albumin 4.1 01/12/21 22:44: Troponin I < 0.028, Thyroid Stimulating Hormone (TSH) 1.71 01/13/21 02:45: White Blood Count 7.7, Red Blood Count 4.05, Hemoglobin 11.7, Hematocrit 36, Mean Corpuscular Volume 90, Mean Corpuscular Hemoglobin 29, Mean Corpuscular Hemoglobin Concent 32, Red Cell Distribution Width 14.5, Platelet Count 206, Mean Platelet Volume 10.1, Immature Granulocyte % (Auto) 0, Neutrophils (%) (Auto) 71, Lymphocytes (%) (Auto) 14, Monocytes (%) (Auto) 13H, Eosinophils (%) (Auto) 2, Basophils (%) (Auto) 0, Neutrophils # (Auto) 5.4, Lymphocytes # (Auto) 1.1, Monocytes # (Auto) 1.0, Eosinophils # (Auto) 0.1, Basophils # (Auto) 0.0, Immature Granulocyte # (Auto) 0.0, Sodium Level 137, Potassium Level 4.0, Chloride Level 105, Carbon Dioxide Level 20L, Anion Gap 12, Blood Urea Nitrogen 13, Creatinine 0.95, Estimat Glomerular Filtration Rate 58, BUN/Creatinine Ratio 14, Glucose Level 104, Calcium Level 9.4, Phosphorus Level 3.5, Magnesium Level 1.9 Radiology CTA chest 01/12: IMPRESSION: Extensive bilateral segmental and subsegmental pulmonary emboli without evidence of heart strain at this time. Significant bilateral pulmonary opacities. These are nonspecific. Findings could relate to an underlying infectious etiology. Developing pulmonary infarction is not excluded. Neoplasm is also not excluded. Recommend a follow-up CT of the chest in 3 months to reevaluate. Assessment/Plan Assessment/Plan (1) Pulmonary emboli Status: Acute Assessment & Plan: Suspect secondary to recent COVID infection. Enoxaparin treatment dose, supplemental oxygen as needed. Qualifiers: Qualified Codes: I26.99 - Other pulmonary embolism without acute cor pulmonale (2) Atrial fibrillation Status: Acute Assessment & Plan: Suspect due to multiple PE. Initial troponin in ER negative, repeat pending. BNP minimally elevated. Check TSH. Transfer to ICU and start cardizem drip will consult eICU for overnight, echo in the am and Cardiology consult in am. 01/13 started on oral medication per Cardiology, appreciate recommendations (3) Hypertension Status: Chronic Assessment & Plan: Resume home lisinopril, starting cardizem for a fib and HTN. Qualifiers: Qualified Codes: I10 - Essential (primary) hypertension (4) Hyperlipidemia Status: Chronic Assessment & Plan: Resume home statin (5) DVT prophylaxis Status: Acute Assessment & Plan: On therapeutic enoxaparin SHIRA BRYANT MD Jan 13, 2021 14:04
[2021-01-13] MEDS: dilTIAZem DRIP PRE-MIX 125 ML IV SCH (23:08)
[2021-01-14 04:15] LABS: BASOPHILS % (AUTO) 0 % (0-10); EOSINOPHILS # (AUTO) 0.2 10^3/uL (0.0-0.3); EOSINOPHILS % (AUTO) 3 % (0-10); HEMATOCRIT 38 % (35-52); HEMOGLOBIN 11.8 g/dL (11.5-16.0); LYMPHOCYTES # (AUTO) 0.9 10^3/uL (1.0-4.0); LYMPHOCYTES % (AUTO) 15 % (12-44); MEAN CORPUSCULAR HEMOGLOBIN 29 pg (25-34); MEAN CORPUSCULAR HGB CONC 31 g/dL (32-36); MEAN CORPUSCULAR VOLUME 93 fL (80-99); MEAN PLATELET VOLUME 9.6 fL (9.0-12.2); MONOCYTES # (AUTO) 0.6 10^3/uL (0.0-1.0); MONOCYTES % (AUTO) 11 % (0-12); NEUTROPHILS # (AUTO) 3.9 10^3/uL (1.8-7.8); NEUTROPHILS % (AUTO) 70 % (42-75); PLATELET COUNT 185 10^3/uL (130-400); WHITE BLOOD COUNT 5.6 10^3/uL (4.3-11.0)
[2021-01-14 04:33] LABS: POTASSIUM 4.2 MMOL/L (3.6-5.0)
[2021-01-14 04:34] LABS: CALCIUM 9.2 MG/DL (8.5-10.1)
[2021-01-14 04:38] LABS: CREATININE SERUM 0.95 MG/DL (0.60-1.30); PHOSPHORUS 3.8 MG/DL (2.3-4.7)
[2021-01-14 04:41] LABS: MAGNESIUM 2.1 MG/DL (1.6-2.4)
[2021-01-14] MEDS: KCL 20 MEQ TAB (K-DUR) PO SCH (04:45)
[2021-01-14] MEDS: POTASSIUM CL 10MEQ/50ML IVPB 50 ML IV SCH (04:45)
[2021-01-14] MEDS: MAGNESIUM 1 GM/100 ML IVPB 100 ML IV SCH (04:45)
[2021-01-14] MEDS: ENOXAPARIN 300 MG/3 ML (LOVENOX) MULTI-DOSE VIAL SQ SCH ×2 (08:14→20:11)
--- NOTE | 2021-01-14 09:59 | Tele-ICU Progress Note ---
Subjective Date Seen by a Provider: Jan 14, 2021 Time Seen by a Provider: 09:15 Subjective/Events-last exam This virtual visit was conducted using real time audio/video. Thank you for asking us to see this patient for B pulmonary emboli w transient afib.. HPC: Recent events: none overnight. PE: VSS. Appears comfortable on camera. HEENT: No obvious masses, adenopathy or JVD. Chest: clear to auscultation. CV: RRR S1 S2 No murmur or added sounds. Abd: Non-tender. Bowel sounds Y. : Unremarkable. Chaudhry N. TILER'S ASSISTANT/psychiatric: Alert and oriented, grossly intact. No obvious focal findings. Extremities: No edema. Capillary refill < 3 seconds. Skin: unremarkable. Results: Elevated BG 118. A/P: Respiratory insufficiency/distress: Resolved. Available chart/ vitals / labs / images reviewed. Video assessment done using teleICU camera, rest of exam as per RN. Respiratory: Continue present management with Lovenox. OK to transfer if Hospitalist agrees. Discussed with BELLE Zimmerman. Asked RN to reach out to eICU if any questions or concerns later. Time spent with patient/coordination of care with other health professionals (mins):15 Sepsis Event Evaluation Height, Weight, BMI Height: '" Weight: lbs. oz. kg; 35.79 BMI Method: Exam Exam Patient acknowledged, consented, and participated in this virtual visit which was conducted using real time audio/video Vital Signs Date Time Temp Pulse Resp B/P (MAP) Pulse Ox O2 Delivery O2 Flow Rate FiO2 01/14/21 09:00 67 15 147/58 (87) 94 Nasal Cannula 1.00 01/14/21 08:00 36.2 01/14/21 08:00 57 14 144/72 (90) 95 Nasal Cannula 1.00 01/14/21 07:43 Nasal Cannula 1.00 01/14/21 07:00 55 23 126/61 (91) 93 Nasal Cannula 1.00 01/14/21 07:00 51 01/14/21 06:00 53 24 124/50 (74) 95 Nasal Cannula 1.00 01/14/21 05:00 56 27 154/63 (93) 94 Nasal Cannula 1.00 01/14/21 04:00 Nasal Cannula 1.00 01/14/21 04:00 36.3 01/14/21 04:00 55 20 143/65 (91) 97 Nasal Cannula 1.00 01/14/21 03:00 60 25 132/57 (82) 95 Nasal Cannula 1.00 01/14/21 02:00 51 20 124/59 (80) 96 Nasal Cannula 1.00 01/14/21 01:00 52 01/14/21 01:00 52 23 114/55 (74) 95 Nasal Cannula 1.00 01/14/21 00:00 36.4 01/14/21 00:00 51 21 115/52 (73) 92 Nasal Cannula 1.00 01/13/21 23:59 Nasal Cannula 1.00 01/13/21 23:00 56 21 139/56 (83) 94 Nasal Cannula 1.00 01/13/21 22:00 54 21 135/54 (81) 92 Nasal Cannula 1.00 01/13/21 21:00 60 28 146/53 (84) 93 Nasal Cannula 1.00 01/13/21 20:00 62 25 149/66 (93) 93 Nasal Cannula 1.00 01/13/21 20:00 Nasal Cannula 1.00 01/13/21 19:44 36.3 01/13/21 19:00 64 01/13/21 19:00 68 28 135/67 (89) 95 Nasal Cannula 1.00 01/13/21 18:00 63 28 142/62 (88) 94 Nasal Cannula 1.00 01/13/21 17:00 56 30 141/69 (93) 94 Nasal Cannula 1.00 01/13/21 16:00 56 21 138/62 (87) 93 Nasal Cannula 1.00 01/13/21 15:37 Nasal Cannula 1.00 01/13/21 15:25 36.5 01/13/21 15:00 59 22 135/63 (87) 93 Nasal Cannula 1.00 01/13/21 14:00 62 25 141/53 (82) 92 Nasal Cannula 1.00 01/13/21 13:00 64 46 110/91 (102) 92 Nasal Cannula 1.00 01/13/21 13:00 76 01/13/21 12:00 65 32 140/93 (101) 94 Nasal Cannula 1.00 01/13/21 12:00 37.5 01/13/21 11:31 Nasal Cannula 1.00 01/13/21 11:00 62 25 124/57 (79) 94 Nasal Cannula 1.00 01/13/21 10:00 71 31 131/67 (88) 94 Nasal Cannula 1.00 I & O 01/14/21 07:00 Intake Total 1620 ml Output Total 900 ml Balance 720 ml Height & Weight Height: '" Weight: lbs. oz. kg; 35.79 BMI Method: General Appearance: No Apparent Distress Capillary Refill: Less Than 3 Seconds Peripheral Pulses: 2+ Dorsalis Pedis (R), 2+ Left Dors-Pedis (L) Gastrointestinal: normal bowel sounds, non tender, soft Results Lab Laboratory Tests 01/12/21 17:40 01/13/21 02:45 01/14/21 04:05 Assessment/Plan Assessment/Plan See free text Critical Care: Critically Ill Patient Time spent on discussion(mins): 0 YI COX MD Jan 14, 2021 09:59
--- NOTE | 2021-01-14 13:34 | Progress Note - Hospitalist ---
Subjective HPI/CC On Admission Date Seen by Provider: Jan 14, 2021 Time Seen by Provider: 12:15 Patient feeling better denies chest pain this reports poor energy and some shortness of breath with exertion when transferring. Reported that her right leg was a little bit sore but she had not noted any more swelling than her baseline and had no past history of thromboembolic disease. She had been feeling well up until the recent shortness of breath. Objective Exam Vital Signs Vital Signs Date Time Temp Pulse Resp B/P (MAP) Pulse Ox O2 Delivery O2 Flow Rate FiO2 01/14/21 13:00 66 01/14/21 12:01 Nasal Cannula 0.00 01/14/21 12:00 149/75 (99) 94 01/14/21 11:58 36.0 01/14/21 10:00 21 01/12/21 23:30 21 Capillary Refill : Less Than 3 Seconds General Appearance: No Apparent Distress, Obese Respiratory: Other (Few basilar rales chest clear otherwise) Cardiovascular: Regular Rate, Rhythm, No Edema, No Gallop, No JVD, No Murmur, Normal Peripheral Pulses Extremity: Normal Capillary Refill, Normal Inspection, Normal Range of Motion, Non Tender, No Calf Tenderness, No Pedal Edema Results/Procedures Lab Laboratory Tests 01/14/21 04:05 Patient resulted labs reviewed. Assessment/Plan Assessment and Plan Assess & Plan/Chief Complaint (1) Pulmonary emboli Status: Acute Assessment & Plan: Suspect secondary to recent COVID infection. Enoxaparin treatment dose, supplemental oxygen as needed. 01/14 respiratory status improved pain patient maintaining saturations at rest on room air if there is a bed available we will see about transfer to the floor co ntinue Lovenox today with likely switch to NOAC therapy tomorrow. Qualifiers: Qualified Codes: I26.99 - Other pulmonary embolism without acute cor pulmonale (2) Atrial fibrillation Status: Acute Assessment & Plan: Suspect due to multiple PE. Initial troponin in ER negative, repeat pending. BNP minimally elevated. Check TSH. Transfer to ICU and start cardizem drip will consult eICU for overnight, echo in the am and Cardiology consult in am. (3) Hypertension Status: Chronic Assessment & Plan: Resume home lisinopril, starting cardizem drip for a fib and HTN. Qualifiers: Qualified Codes: I10 - Essential (primary) hypertension (4) Hyperlipidemia Status: Chronic Assessment & Plan: Resume home statin (5) DVT prophylaxis Status: Acute Assessment & Plan: On therapeutic enoxaparin Critical Care Critically Ill Patient SAE ROCKWELL MD Jan 14, 2021 13:34
--- NOTE | 2021-01-14 14:13 | Progress Note - Cardiology ---
Cardiology SOAP Progress Note Subjective: Less short of breath No palp or syncope No cp Some malaise Objective: I&O/Vital Signs 01/14/21 01/14/21 01/14/21 01/14/21 03:00 04:00 04:00 04:00 Temp 36.3 Pulse 60 55 Resp 25 20 B/P (MAP) 132/57 (82) 143/65 (91) Pulse Ox 95 97 O2 Delivery Nasal Cannula Nasal Cannula Nasal Cannula O2 Flow Rate 1.00 1.00 1.00 01/14/21 01/14/21 01/14/21 01/14/21 05:00 06:00 07:00 07:00 Pulse 56 53 51 55 Resp 27 24 23 B/P (MAP) 154/63 (93) 124/50 (74) 126/61 (91) Pulse Ox 94 95 93 O2 Delivery Nasal Cannula Nasal Cannula Nasal Cannula O2 Flow Rate 1.00 1.00 1.00 01/14/21 01/14/21 01/14/21 01/14/21 07:43 08:00 08:00 09:00 Temp 36.2 Pulse 57 67 Resp 14 15 B/P (MAP) 144/72 (90) 147/58 (87) Pulse Ox 95 94 O2 Delivery Nasal Cannula Nasal Cannula Nasal Cannula O2 Flow Rate 1.00 1.00 1.00 01/14/21 01/14/21 01/14/21 01/14/21 10:00 11:00 11:58 12:00 Temp 36.0 Pulse 74 71 65 Resp 21 B/P (MAP) 110/93 (99) 145/73 (97) 149/75 (99) Pulse Ox 95 96 94 O2 Delivery Nasal Cannula Nasal Cannula Nasal Cannula O2 Flow Rate 1.00 1.00 1.00 01/14/21 01/14/21 12:01 13:00 Pulse 66 O2 Delivery Nasal Cannula O2 Flow Rate 0.00 01/14/21 00:00 Intake Total 1120 ml Output Total 900 ml Balance 220 ml Constitutional: AAO x 3, well-developed, well-nourished Respiratory: No accessory muscle use; other (good, bilateral air entry) Cardiovascular: regular rate-rhythm, S1 and S2, systolic murmur (soft ROBERTO at ca rd base) Gastrointestional: No tender; soft; No guarding, No rebound; audible bowel sounds Extremities: No clubbing, No cyanosis, No significant edema Neurologic/Psychiatric: oriented x 3, other (moves all limbs equally) Skin: No rash on exposed areas, No ulcerations on exposed areas Results/Procedures: Labs Laboratory Tests 01/14/21 04:05: White Blood Count 5.6, Red Blood Count 4.04, Hemoglobin 11.8, Hematocrit 38, Mean Corpuscular Volume 93, Mean Corpuscular Hemoglobin 29, Mean Corpuscular Hemoglobin Concent 31L, Red Cell Distribution Width 14.6H, Platelet Count 185, Mean Platelet Volume 9.6, Immature Granulocyte % (Auto) 1, Neutrophils (%) (Auto) 70, Lymphocytes (%) (Auto) 15, Monocytes (%) (Auto) 11, Eosinophils (%) (Auto) 3, Basophils (%) (Auto) 0, Neutrophils # (Auto) 3.9, Lymphocytes # (Auto) 0.9L, Monocytes # (Auto) 0.6, Eosinophils # (Auto) 0.2, Basophils # (Auto) 0.0, Immature Granulocyte # (Auto) 0.0, Sodium Level 138, Potassium Level 4.2, Chloride Level 106, Carbon Dioxide Level 21, Anion Gap 11, Blood Urea Nitrogen 18, Creatinine 0.95, Estimat Glomerular Filtration Rate 58, BUN/Creatinine Ratio 19, Glucose Level 118H, Calcium Level 9.2, Phosphorus Level 3.8, Magnesium Level 2.1 Microbiology 01/12/21 MRSA Screen - Final, Complete MRSA not isolated Laboratory Tests 01/12/21 17:40 01/13/21 02:45 01/14/21 04:05 A/P: Assessment: Post-COVID pulmonary emboli PAF with RVR, currently NSR - Echoof 01/13/21: LVEF 55-60%, PASP 30-35 mmHg Hypertension Hyperlipidemia TRINITY by history, but she is non-compliant with treatment Plan: * Continue long-acting dilt * Anticoag for stroke prophylaxis. Currently on enoxaparin for treatment of PE. Switch to oral apixaban when ok with Pulm and Med services * I discussed her CV issues with her and answered questions * Monitor labs * Advised compliance with CPAP for sleep apnea * Ok to transfer of ICU, from cardiac standpoint DEREK CHINCHILLA MD FACP [facility] [place] Jan 14, 2021 14:13
[2021-01-14] MEDS: ALLOPURINOL 100 MG (ZYLOPRIM) TAB PO SCH (20:11)
[2021-01-14] MEDS: AtorvaSTATin TABLET 10 MG TABLET PO SCH (20:11)
[2021-01-14] MEDS: lisINopril 20 MG (PRINIVIL) TABLET PO SCH (20:11)
[2021-01-14] MEDS: dilTIAZem DRIP PRE-MIX 125 ML IV SCH (22:51)
[2021-01-15 05:29] LABS: BASOPHILS % (AUTO) 1 % (0-10); EOSINOPHILS # (AUTO) 0.2 10^3/uL (0.0-0.3); EOSINOPHILS % (AUTO) 3 % (0-10); HEMATOCRIT 37 % (35-52); HEMOGLOBIN 11.4 g/dL (11.5-16.0); LYMPHOCYTES # (AUTO) 0.9 10^3/uL (1.0-4.0); LYMPHOCYTES % (AUTO) 15 % (12-44); MEAN CORPUSCULAR HEMOGLOBIN 28 pg (25-34); MEAN CORPUSCULAR HGB CONC 31 g/dL (32-36); MEAN CORPUSCULAR VOLUME 92 fL (80-99); MEAN PLATELET VOLUME 10.2 fL (9.0-12.2); MONOCYTES # (AUTO) 0.7 10^3/uL (0.0-1.0); MONOCYTES % (AUTO) 12 % (0-12); NEUTROPHILS # (AUTO) 4.2 10^3/uL (1.8-7.8); NEUTROPHILS % (AUTO) 69 % (42-75); PLATELET COUNT 237 10^3/uL (130-400); WHITE BLOOD COUNT 6.2 10^3/uL (4.3-11.0)
[2021-01-15 05:32] LABS: POTASSIUM 4.4 MMOL/L (3.6-5.0)
[2021-01-15 05:37] LABS: PHOSPHORUS 3.3 MG/DL (2.3-4.7)
[2021-01-15 05:40] LABS: MAGNESIUM 2.1 MG/DL (1.6-2.4)
[2021-01-15] MEDS: KCL 20 MEQ TAB (K-DUR) PO SCH (05:43)
[2021-01-15] MEDS: MAGNESIUM 1 GM/100 ML IVPB 100 ML IV SCH (05:43)
[2021-01-15] MEDS: POTASSIUM CL 10MEQ/50ML IVPB 50 ML IV SCH (05:43)
[2021-01-15] MEDS: ENOXAPARIN 300 MG/3 ML (LOVENOX) MULTI-DOSE VIAL SQ SCH (08:16)
--- NOTE | 2021-01-15 10:11 | Progress Note - Hospitalist ---
Subjective HPI/CC On Admission Date Seen by Provider: Jan 15, 2021 Time Seen by Provider: 08:15 Patient feeling better denies chest pain this reports poor energy and some shortness of breath with exertion when transferring. Reported that her right leg was a little bit sore but she had not noted any more swelling than her baseline and had no past history of thromboembolic disease. She had been feeling well up until the recent shortness of breath. Subjective/Events-last exam Patient denies chest pain there is been no shortness of breath at rest she reports some mild shortness of breath with exertion only has had no hemoptysis and reports feeling better than she did yesterday. There is been no documented hypoxia and the patient is on room air. She denies lightheadedness or dizziness when she is up and about. Objective Exam Vital Signs Vital Signs Date Time Temp Pulse Resp B/P (MAP) Pulse Ox O2 Delivery O2 Flow Rate FiO2 01/15/21 08:00 Nasal Cannula 1.00 01/15/21 07:42 36.0 59 18 130/76 (94) 93 01/12/21 23:30 21 Capillary Refill : Less Than 3 Seconds General Appearance: No Apparent Distress, Obese Respiratory: Chest Non Tender, Lungs Clear, Normal Breath Sounds, No Accessory Muscle Use, No Respiratory Distress Cardiovascular: Regular Rate, Rhythm, No Edema, No Gallop, No JVD, No Murmur, Normal Peripheral Pulses Extremity: No Pedal Edema Results/Procedures Lab Laboratory Tests 01/15/21 04:57 Patient resulted labs reviewed. Assessment/Plan Assessment and Plan Assess & Plan/Chief Complaint (1) Pulmonary emboli Status: Acute Assessment & Plan: Suspect secondary to recent COVID infection. Enoxaparin treatment dose, supplemental oxygen as needed. 01/14 respiratory status improved pain patient maintaining saturations at rest on room air if there is a bed available we will see about transfer to the floor continue Lovenox today with likely switch to NOAC therapy tomorrow. 01/14 status improved patient received Lovenox this morning at 9 will start 10 mg of Eliquis at 7:00 PM and then continue Eliquis on a twice daily schedule discontinuing Lovenox. Provided the patient continues to do well discharge in the morning. Qualifiers: Qualified Codes: I26.99 - Other pulmonary embolism without acute cor pulmonale (2) Atrial fibrillation Status: Acute Assessment & Plan: Suspect due to multiple PE. Initial troponin in ER negative, repeat pending. BNP minimally elevated. Check TSH. Transfer to ICU and start cardizem drip will consult eICU for overnight, echo in the am and Cardiology consult in am. (3) Hypertension Status: Chronic Assessment & Plan: Resume home lisinopril, starting cardizem drip for a fib and HTN. Qualifiers: Qualified Codes: I10 - Essential (primary) hypertension (4) Hyperlipidemia Status: Chronic Assessment & Plan: Resume home statin (5) DVT prophylaxis Status: Acute Assessment & Plan: On therapeutic enoxaparin Critical Care Critically Ill Patient SAE ROCKWELL MD Jan 15, 2021 10:11
--- NOTE | 2021-01-15 16:03 | Progress Note - Cardiology ---
Cardiology SOAP Progress Note Subjective: No cp or palp or syncope or shortness of breath at rest States is breathing better No n/v/d Objective: I&O/Vital Signs 01/15/21 01/15/21 01/15/21 01/15/21 04:12 07:00 07:42 08:00 Temp 36.7 36.0 Pulse 61 84 59 Resp 17 18 B/P (MAP) 109/63 (78) 130/76 (94) Pulse Ox 94 93 O2 Delivery Room Air Room Air Nasal Cannula O2 Flow Rate 1.00 01/15/21 01/15/21 11:42 13:00 Temp 36.3 Pulse 63 68 Resp 18 B/P (MAP) 126/71 (89) Pulse Ox 94 O2 Delivery Nasal Cannula O2 Flow Rate 1.00 01/15/21 00:00 Intake Total 500 ml Balance 500 ml Constitutional: AAO x 3, well-developed, well-nourished Respiratory: No accessory muscle use; other (good, bilateral air entry) Cardiovascular: regular rate-rhythm, S1 and S2, systolic murmur (soft ROBERTO at card base) Gastrointestional: No tender; soft; No guarding, No rebound; audible bowel sounds Extremities: No clubbing, No cyanosis, No significant edema Neurologic/Psychiatric: oriented x 3, other (moves all limbs equally) Skin: No rash on exposed areas, No ulcerations on exposed areas Results/Procedures: Labs Laboratory Tests 01/15/21 04:57: White Blood Count 6.2, Red Blood Count 4.01, Hemoglobin 11.4L, Hematocrit 37, Mean Corpuscular Volume 92, Mean Corpuscular Hemoglobin 28, Mean Corpuscular Hemoglobin Concent 31L, Red Cell Distribution Width 14.6H, Platelet Count 237, Mean Platelet Volume 10.2, Immature Granulocyte % (Auto) 1, Neutrophils (%) (Auto) 69, Lymphocytes (%) (Auto) 15, Monocytes (%) (Auto) 12, Eosinophils (%) (Auto) 3, Basophils (%) (Auto) 1, Neutrophils # (Auto) 4.2, Lymphocytes # (Auto) 0.9L, Monocytes # (Auto) 0.7, Eosinophils # (Auto) 0.2, Basophils # (Auto) 0.0, Immature Granulocyte # (Auto) 0.0, Sodium Level 137, Potassium Level 4.4, Chloride Level 104, Carbon Dioxide Level 24, Anion Gap 9, Blood Urea Nitrogen 19H, Creatinine 1.00, Estimat Glomerular Filtration Rate 55, BUN/Creatinine Ratio 19, Glucose Level 103, Calcium Level 9.0, Phosphorus Level 3.3, Magnesium Level 2.1 Microbiology 01/12/21 MRSA Screen - Final, Complete MRSA not isolated Laboratory Tests 01/14/21 04:05 01/15/21 04:57 A/P: Assessment: Post-COVID pulmonary emboli PAF with RVR, currently NSR - Echo of 01/13/21: LVEF 55-60%, PASP 30-35 mmHg Hypertension Hyperlipidemia TRINITY by history, but she is non-compliant with treatment Plan: * Continue long-acting dilt and oral anticoag * I discussed her CV issues with her and answered questions * Monitor labs * Advised compliance with CPAP for sleep apnea DEREK CHINCHILLA MD FACP [facility] Jan 15, 2021 16:03
[2021-01-15] MEDS: APIXABAN 5 MG (ELIQUIS) TABLET PO SCH (18:12)
[2021-01-15] MEDS: dilTIAZem DRIP PRE-MIX 125 ML IV SCH (19:22)
[2021-01-15] MEDS: ALLOPURINOL 100 MG (ZYLOPRIM) TAB PO SCH (19:39)
[2021-01-15] MEDS: AtorvaSTATin TABLET 10 MG TABLET PO SCH (19:39)
[2021-01-15] MEDS: lisINopril 20 MG (PRINIVIL) TABLET PO SCH (19:39)
[2021-01-16] MEDS: APIXABAN 5 MG (ELIQUIS) TABLET PO SCH ×2 (05:57→09:01)
[2021-01-16 06:22] LABS: BASOPHILS % (AUTO) 0 % (0-10); EOSINOPHILS # (AUTO) 0.2 10^3/uL (0.0-0.3); EOSINOPHILS % (AUTO) 3 % (0-10); HEMATOCRIT 37 % (35-52); HEMOGLOBIN 11.7 g/dL (11.5-16.0); LYMPHOCYTES # (AUTO) 0.8 10^3/uL (1.0-4.0); LYMPHOCYTES % (AUTO) 18 % (12-44); MEAN CORPUSCULAR HEMOGLOBIN 29 pg (25-34); MEAN CORPUSCULAR HGB CONC 32 g/dL (32-36); MEAN CORPUSCULAR VOLUME 90 fL (80-99); MEAN PLATELET VOLUME 9.4 fL (9.0-12.2); MONOCYTES # (AUTO) 0.4 10^3/uL (0.0-1.0); MONOCYTES % (AUTO) 9 % (0-12); NEUTROPHILS # (AUTO) 3.3 10^3/uL (1.8-7.8); NEUTROPHILS % (AUTO) 69 % (42-75); PLATELET COUNT 236 10^3/uL (130-400); WHITE BLOOD COUNT 4.7 10^3/uL (4.3-11.0)
[2021-01-16 06:34] LABS: POTASSIUM 4.2 MMOL/L (3.6-5.0)
[2021-01-16 06:35] LABS: CALCIUM 9.1 MG/DL (8.5-10.1)
[2021-01-16] MEDS: POTASSIUM CL 10MEQ/50ML IVPB 50 ML IV SCH (06:38)
[2021-01-16 06:39] LABS: CREATININE SERUM 0.86 MG/DL (0.60-1.30); PHOSPHORUS 3.4 MG/DL (2.3-4.7)
[2021-01-16] MEDS: KCL 20 MEQ TAB (K-DUR) PO SCH (06:39)
[2021-01-16 06:42] LABS: MAGNESIUM 2.1 MG/DL (1.6-2.4)
[2021-01-16] MEDS: MAGNESIUM 1 GM/100 ML IVPB 100 ML IV SCH (06:47)
[2021-01-16] MEDS ORDERED: DILT240C91 PO (11:51)
[2021-01-16] MEDS ORDERED: APIX5TAB PO (11:51)
--- NOTE | 2021-01-16 11:52 | Discharge Summary ---
Discharge Summary Hospital Course Was the Problem List Reviewed?: Yes Problems/Dx: (1) Pulmonary emboli Status: Acute Qualifiers: Qualified Codes: I26.99 - Other pulmonary embolism without acute cor pulmonale (2) Hypertension Status: Chronic Qualifiers: Qualified Codes: I10 - Essential (primary) hypertension (3) Atrial fibrillation Status: Acute (4) Dyspnea Status: Acute Qualifiers: Qualified Codes: R06.00 - Dyspnea, unspecified (5) Hyperlipidemia Status: Chronic Hospital Course Date of Admission: Jan 12, 2021 at 21:53 Admission Diagnosis : Family Physician/Provider: Ángel Munguia MD Date of Discharge: 01/16/21 Discharge Diagnosis: Pulmonary emboli bilateral, pulmonary hypertension on echo, atrial fibrillation, untreated sleep apnea due to noncompliance Hospital Course: Hospital Course: Pt had an uneventful hospital course. She was admitted for SOB and pulmonary emboli s/p Covid on 12/23/20. Pt was placed on Lovenox, transitioned to Eliquis. Echocardiogram showed pulmonary arterial pressure of 35 and home O2 evaluation did not show evidence of needing oxygen at home. She has been noncompliant with CPAP for TRINITY and she was ready to go home. Labs and Pending Lab Test: Laboratory Tests 01/16/21 06:00: White Blood Count 4.7, Red Blood Count 4.07, Hemoglobin 11.7, Hematocrit 37, Mean Corpuscular Volume 90, Mean Corpuscular Hemoglobin 29, Mean Corpuscular Hemoglobin Concent 32, Red Cell Distribution Width 14.5, Platelet Count 236, Mean Platelet Volume 9.4, Immature Granulocyte % (Auto) 0, Neutrophils (%) (Auto) 69, Lymphocytes (%) (Auto) 18, Monocytes (%) (Auto) 9, Eosinophils (%) (Auto) 3, Basophils (%) (Auto) 0, Neutrophils # (Auto) 3.3, Lymphocytes # (Auto) 0.8L, Monocytes # (Auto) 0.4, Eosinophils # (Auto) 0.2, Basophils # (Auto) 0.0, Immature Granulocyte # (Auto) 0.0, Sodium Level 138, Potassium Level 4.2, Chloride Level 107, Carbon Dioxide Level 23, Anion Gap 8, Blood Urea Nitrogen 19H, Creatinine 0.86, Estimat Glomerular Filtration Rate 65, BUN/Creatinine Ratio 22, Glucose Level 101, Calcium Level 9.1, Phosphorus Level 3.4, Magnesium Level 2.1 Microbiology 01/12/21 MRSA Screen - Final, Complete MRSA not isolated Home Meds Active Diltiazem 24Hr ER (Diltiazem HCl) 240 Mg Cap.er.24h 240 Mg PO DAILY Eliquis (Apixaban) 5 Mg Tablet 10 Mg PO BID Take 2 pills BID for 3 more days then 1 pill BID for 3 months Reported Tylenol Extra Strength (Acetaminophen) 500 Mg Tablet 500-1,000 Mg PO Q8H PRN Atorvastatin Calcium 10 Mg Tablet 10 Mg PO HS Allopurinol 100 Mg Tablet 100 Tab PO HS Lisinopril 20 Mg Tablet 20 Mg PO HS Assessment/Pt Instructions PCP in 1 week Discharge Planning: <30 minutes discharge planning Discharge Instructions Discharge Diet: No Restrictions Activity as Tolerated: Yes Discharge Physical Examination Vital Signs Vital Signs Date Time Temp Pulse Resp B/P (MAP) Pulse Ox O2 Delivery O2 Flow Rate FiO2 01/16/21 10:22 84 91 01/16/21 08:21 35.3 20 118/71 (87) Room Air 01/15/21 11:42 1.00 01/12/21 23:30 21 General Appearance: No Apparent Distress, WD/WN, Chronically ill, Obese Respiratory: Lungs Clear Cardiovascular: Regular Rate, Rhythm Neurologic/Psychiatric: Alert, Oriented x3 Allergies: Coded Allergies: No Known Drug Allergies (Unverified , 01/12/21) Discharge Summary Date of Admission Jan 12, 2021 at 21:53 Date of Discharge Discharge Date: Jan 16, 2021 Comfort Measures/ Time spent on discussion (min): 0 ADRIÁN AZEVEDO DO Jan 16, 2021 11:52
[2021-01-16 13:54] VITALS: BP 129/73
--- NOTE | 2021-01-16 14:42 | Progress Note ---
CAROLYN PUTNAM MED STUDENT 01/16/21 1442: Progress Note This is Chelsey a 70 yo female on day 5 of her hospital stay being discharged home with the admitting complaint of pulmonary emboli. PMH significant for hypertension, hyperlipidemia, and recent Covid that presented due to worsening shortness of breath. The pt was Covid positive on December 23. At that time her symptoms were body aches, chills, fever, cough, and mild shortness of breath. Pt presented to the ED on 01/12. She presented after developing a sharp chest pain that was worse with inspiration that she had never felt before. She stated that she went to the clinic and with with ambulation her oxygen saturation were in the 80s, so she was referred to the ED. She denied any previous history of blood clots in her legs or her lungs. She did endorse unilateral leg swelling with pain on the right. A CTA was completed on 01/12 that showed extensive bilateral segmental and subsegmental pulmonary emboli without evidence of heart strain at this time. On 01/13 cardiology and critical care were consulted. She was experiencing a fib with RVR and feeling palpitations. She was transferred to the ICU for closer observation. Duoneb, lovenox, and cardizem infusion were given. An ECHO was completed on 01/14 which showed an EF of 55-60% and a PASP of 30- 35mmHg. After stabilizing and returning to sinus rhythm she was moved to [facility] for the remainder of her stay. Upon entering the room this morning she was laying in bed eating breakfast. She was calm, cooperative, and engaged during questioning. She stated that she still cant taste or smell. Pt was having discomfort with the IV in her left anticubital space. She admits to experiencing SOB with exertion but stated that she feels much better than before. She stated that she is experiencing incontinence that is new since getting COVID and having uncontrolled coughing spells. Upon discharge home O2 study was completed. She was encouraged to obtain and utilize a CPAP machine. F/u with cardiology will be scheduled and a possible consultation with MOTOR LODGE CLERK for incontinence can be scheduled. Pt will be discharged home with sha for management at home. MARTHA AZEVEDO DO 01/17/21 0519: Supervisory-Addendum Brief Verification & Attestation Participated in pt care: history, MDM, physical Personally performed: exam, history, MDM, supervision of care Care discussed with: Medical Student Procedures: n/a Results interpretation: Verified all documentation Verification and Attestation of Medical Student E/M Service A medical student performed and documented this service in my presence. I reviewed and verified all information documented by the medical student and made modifications to such information, when appropriate. I personally performed the physical exam and medical decision making. Martha Azevedo, Jan 17, 2021,05:18 CAROLYN PUTNAM MED STUDENT Jan 16, 2021 14:42 MARTHA AZEVEDO DO Jan 17, 2021 05:19
== END 2021-01-16 13:55 | disposition home or self-care (01) | DRG 176 ==
LOC: EDUNIT# 17:37 → ER FS 17:38 → 4TH 19:42 → OBSVTOIN 21:53 → ICU 22:45 → 4TH 01-14 15:17
PROVIDERS: ADMIT Family Medicine; ATTEND Internal Medicine
DX: I26.94 Multiple subsegmental thrombotic pulmonary emboli without acute cor pulmonale (principal); B94.8 Sequelae of other specified infectious and parasitic diseases; I27.20 Pulmonary hypertension, unspecified; I48.0 Paroxysmal atrial fibrillation; I10 Essential (primary) hypertension; E78.5 Hyperlipidemia, unspecified; E78.00 Pure hypercholesterolemia, unspecified; M10.9 Gout, unspecified; G47.33 Obstructive sleep apnea (adult) (pediatric); Z83.6 Family history of other diseases of the respiratory system
CPT/HCPCS: 36415; 71275; 80048; 80053; 83735; 83880; 84100; 84443; 84484; 85025; 85610; 85730; 87081; 93005; 93041; 93306; 94761; 96374

== ENCOUNTER → 2021-04-28 | Outpatient (CLI) | payer MEDICARE ==
[~2021-04-28] VITALS: Ht 175 cm; Wt 115.0 kg
[~2021-04-28] MED LIST: ACET-2267 PO; ALLO100T PO; APIX5TAB PO; ATOR10TA66 PO; CATHETER FLUSH 10 ML SYR IV PRN; DILT240C91 PO; LISI20TA26 PO; REGADENOSON 0.4 MG/5 ML SYR (LEXISCAN) IV ONE
[2021-04-28 10:19] VITALS: BP 166/88
--- NOTE | 2021-05-03 15:51 | STRESS TEST ---
DATE OF SERVICE: 04/28/2021 RESTING AND POST REGADENOSON TECHNETIUM-99M TETROFOSMIN SPECT CT IMAGING ORDERING PHYSICIAN: Dr. Moncada. PRIMARY PHYSICIAN: Dr. Munguia. CLINICAL DIAGNOSIS: Shortness of breath. Baseline images were carried out after injection of 10.1 mCi of technetium-99m Tetrofosmin. This was followed by 0.4 mg of Regadenoson and 27.3 mCi of technetium-99m Tetrofosmin for stress imaging. The electrocardiogram showed sinus rhythm at baseline. It did not change significantly with the Regadenoson infusion. The patient tolerated the procedure well. Review of images at rest and following stress indicates a moderate transient perfusion defect in the anteroseptal segment. Gated images show normal global left ventricular systolic function with a normal regional wall motion. Left ventricular ejection fraction is calculated to be 76%. Left ventricular end-diastolic volume is 63 mL. TID is absent (0.99). CONCLUSIONS: 1. This study is suggestive of a moderate amount of anteroseptal ischemia. 2. Normal regional wall motion. 3. Normal global left ventricular systolic function with a calculated ejection fraction of 76%. Job ID: [id number] DocumentID: [id number] Dictated Date: 05/03/2021 12:31:45 Solid Plasterer Date: 05/03/2021 15:50:53 Dictated By: DEREK MONCADA MD, MA, FACP, FACC,
== END ==
LOC: CARD 07:38
PROVIDERS: ATTEND Internal Medicine Cardiovascular Disease
DX: R06.09 Other forms of dyspnea (principal)
CPT/HCPCS: 78452; 93017

== ENCOUNTER 2021-05-09 07:52 | Day surgery (SDC) | payer MEDICARE ==
[~2021-05-09] VITALS: Ht 175.3 cm; Wt 115.4 kg
[2021-05-09] VITALS (10 sets, daily range): BP systolic 130–157; BP diastolic 63–83
[~2021-05-09 07:52] MED LIST changes: -CATHETER FLUSH 10 ML SYR IV PRN; -REGADENOSON 0.4 MG/5 ML SYR (LEXISCAN) IV ONE
[2021-05-09] MEDS ORDERED: LIDOCAINE 1% INJ 20 ML 20 ML VIAL ONE (08:00)
[2021-05-09] MEDS ORDERED: NS IV 1000 ML 1,000 ML ONE (08:00)
[2021-05-09] MEDS ORDERED: HEParin (CATH LAB) 2,000 ML IV ONE (08:00)
[2021-05-09] MEDS ORDERED: NS IV 1000 ML 1,000 ML IV SCH ×2 (08:00→11:00)
[2021-05-09 08:26] LABS: HEMATOCRIT 39 % (35-52); HEMOGLOBIN 12.1 g/dL (11.5-16.0); MEAN CORPUSCULAR HEMOGLOBIN 27 pg (25-34); MEAN CORPUSCULAR HGB CONC 31 g/dL (32-36); MEAN CORPUSCULAR VOLUME 88 fL (80-99); MEAN PLATELET VOLUME 9.8 fL (9.0-12.2); PLATELET COUNT 248 10^3/uL (130-400); WHITE BLOOD COUNT 5.8 10^3/uL (4.3-11.0)
[2021-05-09 08:37] LABS: PROTHROMBIN TIME PATIENT 13.2 SEC (12.2-14.7)
[2021-05-09 08:44] LABS: ALBUMIN 4.2 GM/DL (3.2-4.5); BILIRUBIN,TOTAL 0.5 MG/DL (0.1-1.0); CALCIUM 9.5 MG/DL (8.5-10.1); CREATININE SERUM 1.14 MG/DL (0.60-1.30); POTASSIUM 4.3 MMOL/L (3.6-5.0); TOTAL PROTEIN 7.4 GM/DL (6.4-8.2)
[2021-05-09] MEDS ORDERED: DILT240C90 PO (08:50)
[2021-05-09] MEDS ORDERED: APIX5TAB PO (08:50)
[2021-05-09] MEDS ORDERED: CITA40TA13 PO (08:50)
[2021-05-09] MEDS ORDERED: MIDAZOLAM 5 MG/5 ML (VERSED) VIAL ONE (10:05)
[2021-05-09] MEDS ORDERED: fentaNYL INJ 100 MCG/2 ML AMP ONE (10:05)
--- NOTE | 2021-05-09 10:51 | Cardiac Procedure Note-CS/ASA ---
Pre-Procedure Note Pre-Op Procedure Note H&P Reviewed The H&P was reviewed, patient examined and no changes noted. Date H&P Reviewed: May 09, 2021 Time H&P Reviewed: 10:30 Conscious Sedation Pre-Proced Time 10:30 ASA Score 3 For ASA 3 and 4: Consider anesthesia and medical clearance. Also, for patients with a history of failed moderate sedation consider anesthesia. Airway Lungs Heart ASA score ASA 1: a normal healthy patient ASA 2: a patient with a mild systemic disease (mid diabetes, controlled hypertension, obesity ASA 3: a patient with a severe systemic disease that limits activity (angina, COPD, prior Myocardial infarction) ASA 4: a patient with an incapacitating disease that is a constant threat to life (CHF, renal failure) ASA 5: a moribund patient not expected to survive 24 hrs. (ruptured aneurysm) ASA 6: a declared brain- patient whose organs are being harvested. For emergent operations, add the letter E after the classification Mallampati Classification Grade 2 Sedation Plan Analgesia, Amnesia, Plan communicated to team members, Discussed options with patient/fam, Discussed risks with patient/fam The patient is an appropriate candidate to undergo the planned procedure, sedation, and anesthesia. The patient immediately re-assessed prior to indication. DEREK CHINCHILLA MD FACP [facility] May 09, 2021 10:51
--- NOTE | 2021-05-09 10:59 | Discharge Inst-Cardiology ---
Discharge Inst-Cardiac Discharge Medications Continued Medications: Acetaminophen (Tylenol Extra Strength) 500 Mg Tablet 500-1000 MG PO Q8H PRN for PAIN-MILD (1-4), TAB Allopurinol (Allopurinol) 100 Mg Tablet 100 TAB PO HS, TAB Apixaban (Eliquis) 5 Mg Tablet 5 MG PO BID, TAB Atorvastatin Calcium (Atorvastatin Calcium) 10 Mg Tablet 10 MG PO HS, TAB Citalopram Hydrobromide (Citalopram HBr) 40 Mg Tablet 40 MG PO DAILY, TAB Diltiazem HCl (Diltiazem 24Hr Cd) 240 Mg Cap.er.24h 240 MG PO DAILY, CAP Lisinopril (Lisinopril) 20 Mg Tablet 20 MG PO HS, TAB DEREK CHINCHILLA MD FACP [facility] May 09, 2021 10:59
[2021-05-09] MEDS ORDERED: PATIENT MAY USE OWN MEDS, ALL PO SCH (11:00)
--- NOTE | 2021-05-09 11:00 | Discharge Inst-Post CATH ---
Discharge Inst-CATH/EP Post Cardiac Cath/EP D/C Inst Follow Up/Plan F/u with Dr Moncada in one month ACTIVITY * Go Home directly and rest. * Limit activity of the leg (or wrist if it was used) for 7 days including aerobics, swimming, jogging, bicycling, etc. * Restrict stair-climbing for 7 days if possible, if not, climb up with your non-cath leg, then bring together on the same step. * Avoid lifting, pushing, pulling or excessive movement of the affected extremity for 7 days. * Customary sexual activity may be resumed after 2 days-use caution not to use a position that strains or causes pain to the affected extremity. * No driving for 24 hours. * NO SMOKING. * Avoid straining for bowel movements for 7 days. * Gentle walking on level ground is allowed. * Returning to work will depend on the type of procedure and the results. Your doctor will discuss this with you. CALL YOUR DOCTOR FOR ANY OF THE FOLLOWING: *If bleeding from the puncture site occurs- Apply gentle pressure to site with clean cloth and call your doctor or EMS. * If a knot or lump forms under the skin, increases in size, or causes pain. * If bruising appears to be worsening or moving further down your leg instead of disappearing. * Temperature above 101 F. CARE OF YOUR GROIN INCISION; * Bruising or purple discoloration of the skin near the puncture site is common. * You may shower only, no bathtub bathing for 5 days. Be careful to avoid slipping as your leg may feel stiff. * If a closure device was used on your femoral artery, please see the attached guide regarding care of the device and your leg. * Leave dressing on FOR 24 hours. CARE OF YOUR WRIST INCISION; * Bruising or purple discoloration of the skin near the puncture site is common. * You may shower. * DO NOT submerge wrist. * Leave dressing on FOR 24 hours. DEREK MONCADA MD [facility] May 09, 2021 11:00
--- NOTE | 2021-05-09 14:45 | CARDIAC CATHETERIZATION ---
DATE OF SERVICE: 05/09/2021 CARDIAC CATHETERIZATION REPORT The patient is a 70-year-old lady, who has symptoms of shortness of breath, multiple coronary artery disease risk factors, and a recent myocardial perfusion imaging study that was suggestive of inferolateral ischemia. Cardiac catheterization was carried out today after having obtained an informed consent. DESCRIPTION OF PROCEDURE: She was brought to the cardiac catheterization laboratory in a fasting state. Right groin was prepared and draped in the usual sterile fashion. Lidocaine 1% was used for local anesthesia. Modified Seldinger technique was used to advance a 5-Cameroonian sheath in the right femoral artery, 5-Cameroonian JL4 catheter was used for left coronary angiography, 5-Cameroonian JR4 catheter was used for right coronary angiography, 5-Cameroonian pigtail catheter was used for left heart catheterization and left ventricular angiography. The pigtail catheter was then pulled back and removed. Angiography of the right femoral artery was carried out through the sheath. Mynx was used to achieve hemostasis. She tolerated the procedure well. HEMODYNAMICS: Left ventricular end-diastolic pressure following coronary angiography was 17 mmHg. There was no significant pressure gradient on pullback across the aortic valve. LEFT VENTRICULAR ANGIOGRAPHY: Left ventricular angiography was carried out in the right anterior oblique projection. Global left ventricular systolic function is normal. No regional wall motion abnormalities seen. Left ventricular ejection fraction is approximately 55% to 60%. CORONARY ANGIOGRAPHY: Left main coronary artery, left circumflex artery, right coronary artery do not exhibit any angiographically significant disease. Right coronary artery is dominant. CONCLUSIONS: 1. No angiographically significant coronary artery disease. 2. Normal global left ventricular systolic function with ejection fraction of 55% to 60%. 3. Left ventricular end-diastolic pressure 17 mmHg. DISCUSSION AND RECOMMENDATIONS: Based on the results of the study, it appears appropriate to continue a conservative approach. Myocardial perfusion imaging appears to have been false positive. Risk factor modification was discussed. Outpatient followup is advised. Job ID: [id number] DocumentID: [id number] Dictated Date: 05/09/2021 10:57:07 Water Reuse Program Manager Date: 05/09/2021 14:44:26 Dictated By: DEREK CHINCHILLA MD, MA, FACP, FACC,
== END 2021-05-09 14:25 | disposition home or self-care (01) ==
LOC: CATH 07:52 → SDC 11:07 → CATH 14:25
PROVIDERS: ATTEND Internal Medicine Cardiovascular Disease
DX: R06.02 Shortness of breath (principal); Z86.711 Personal history of pulmonary embolism; Z86.16 Personal history of COVID-19; I48.0 Paroxysmal atrial fibrillation; I10 Essential (primary) hypertension; E78.2 Mixed hyperlipidemia; G47.33 Obstructive sleep apnea (adult) (pediatric); Z99.89 Dependence on other enabling machines and devices; Z79.01 Long term (current) use of anticoagulants; Z79.899 Other long term (current) drug therapy; Z11.2 Encounter for screening for other bacterial diseases
CPT/HCPCS: 36415; 80053; 80061; 85027; 85610; 85730; 87081; 93458

== ENCOUNTER → 2021-10-24 | Outpatient (CLI) | payer MEDICARE ==
[~2021-10-24] MED LIST changes: +CITA40TA13 PO; +DILT240C90 PO
--- NOTE | 2021-10-24 14:26 | Diagnostic Imaging Report ---
PROCEDURE: CT urinary tract, rule out kidney stone. TECHNIQUE: Multiple contiguous axial images were obtained through the abdomen and pelvis without the use of intravenous contrast. Auto Exposure Controls were utilized during the CT exam to meet ALARA standards for radiation dose reduction. INDICATION: Right-sided flank pain. Urinary frequency. COMPARISON: None. FINDINGS: The heart is unremarkable. Small amount of subsegmental atelectasis is seen in the lung bases. No evidence of renal calculi or hydronephrosis. No significant perinephric fat stranding. The urinary bladder is decompressed. No bladder calculi are seen. The liver, spleen, pancreas, and adrenal glands have a normal appearance. There is no pathologically enlarged mesenteric or retroperitoneal adenopathy. The bowel loops are nondilated. Diverticuli are seen in the descending and sigmoid colon with mild pericolonic inflammatory changes involving the distal descending colon. There is no free fluid or free air. No acute osseous abnormalities. Scattered calcified aortic and iliac atherosclerotic plaque is seen without evidence of aneurysm. There is no free air, loculated collection, or adenopathy in the pelvis. IMPRESSION: 1. Mild acute uncomplicated diverticulitis involving the distal descending colon. 2. No evidence of renal calculi or hydronephrosis. No bladder calculi. Dictated by: Dictated on workstation # [id number]
== END ==
LOC: RAD FS 13:33
PROVIDERS: ATTEND Family Medicine
DX: K57.92 Diverticulitis of intestine, part unspecified, without perforation or abscess without bleeding (principal); R31.9 Hematuria, unspecified; R35.0 Frequency of micturition; Z87.442 Personal history of urinary calculi
CPT/HCPCS: 74176